=== PATIENT | male | born 1970 | race Caucasian/White ===

== ENCOUNTER 2018-09-21 23:48 | Inpatient (IN) | payer OTHER, MEDICAID ==
[~2018-09-21] VITALS: Ht 182.9 cm; Wt 89.8 kg
[2018-09-21 23:59] VITALS: BP 125/81
[2018-09-22] VITALS (7 sets, daily range): BP systolic 102–120; BP diastolic 62–71
[2018-09-22] MEDS ORDERED: OMEPRAZOLE40 MG PO (00:02)
[2018-09-22 00:27] LABS: HEMATOCRIT 39.3 % (42.0-52.0); HEMOGLOBIN 13.8 gm/dL (14.0-18.0); MCV 85.7 fL (80.0-100.0); MPV 6.5 fl. (7.2-11.1); RBC 4.59 mil/uL (4.50-6.00); RDW-CV 12.7 % (10.5-14.5); WBC 13.4 thou/uL (4.0-11.0)
[2018-09-22 00:37] LABS: CALCIUM 9.8 mg/dL (8.5-10.1); CREATININE 0.9 mg/dL (0.6-1.3); POTASSIUM 3.7 mmol/L (3.5-5.1)
--- NOTE | 2018-09-22 06:09 | NUR ---
ADMITTED 0200. GAVE HIM SOME FOOD AND HE WAS ABLE TO SLEEP REMAINDER OF SHIFT. HE DID NOT REPORT ANY NEW ONSET OF PAIN.
[2018-09-22 08:35] LABS: URINE BILIRUBIN NEGATIVE (Negative); URINE BLOOD NEGATIVE (Negative); URINE CLARITY CLEAR; URINE COLOR YELLOW; URINE GLUCOSE-RANDOM NEGATIVE (Negative); URINE KETONES NEGATIVE (Negative); URINE LEUKOCYTES-REFLEX NEGATIVE (Negative); URINE NITRITE-REFLEX NEGATIVE (Negative); URINE PROTEIN NEGATIVE (Negative); URINE UROBILINOGEN 0.2 E.U./dl (0.2-1.0)
--- NOTE | 2018-09-22 17:17 | NUR ---
PATIENT PLEASANT AND COOPERATIVE W/ ASSESS AND CARES THIS SHIFT. ALERT AND ORIENTED. IV FLUIDS INFUSING S/O DIFF. PATIENT INDEP IN RM. DENIES PAIN. SCRATCHES NOTED TO LOWER CALVES/ANKLE AREA BLE, PATIENT STATES JUST "ITCHY". SCDs TO BLE ON AND FUNCTIONING APPROP. REGULAR DIET, EATING WELL. NO BREATHING DIFF NOTED, CALM. RESTING IN BED, WATCHING TV. HRLY ROUNDING COMPLETED. ~TJRN
[2018-09-23 04:54] LABS: CALCIUM 8.2 mg/dL (8.5-10.1); CREATININE 0.6 mg/dL (0.6-1.3); MAGNESIUM 2.1 mg/dL (1.8-2.4); POTASSIUM 3.6 mmol/L (3.5-5.1)
--- NOTE | 2018-09-23 05:28 | NUR ---
PATIENT DID NOT REPORT ANY PAIN OR NEW ISSUES OVERNIGHT. HE WAS ABLE TO REST THROUGH THE SHIFT. NO WORSENING OF SYMPTOMS.
[2018-09-23 07:58] VITALS: BP 111/75
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
--- NOTE | 2018-09-23 16:48 | NUR ---
PT A&Ox4. VITALS STABLE. NEW IV PLACED IN R FA, INFUSING. DENIED PAIN. DENIED NAUSEA/VOMITING. TOLERATING DIET. WALKING HALLS. HOPEFULLY DC TOMORROW AFTER AM LABS. CALL LIGHT WITHIN REACH. WILL CONTINUE TO MONITOR.
[2018-09-23 16:53] VITALS: BP 122/75
[2018-09-23 21:15] VITALS: BP 115/69
[2018-09-24 05:12] LABS: CALCIUM 8.8 mg/dL (8.5-10.1); CREATININE 0.8 mg/dL (0.6-1.3); MAGNESIUM 2.2 mg/dL (1.8-2.4); POTASSIUM 4.2 mmol/L (3.5-5.1)
--- NOTE | 2018-09-24 05:51 | NUR ---
PATIENT AMBULATED HALLWAYS OFTEN THROUGHOUT SHIFT. HE IS TOLERATING DIET WELL AND REPORTING NO PAIN OR NAUSEA.
[2018-09-24 08:00] VITALS: BP 111/63
[2018-09-24 09:37] VITALS: BP 111/63
--- NOTE | 2018-09-24 13:38 | NUR ---
PT.TO BE DISCHARGED TODAY. HE WILL NEED TRANSPORTATION. HE REQUESTED [facility]. HE WOULD LIKE TO GET TO [place], [place]. CAB VOUCHER GIVEN TO RN. STORAGE FACILITY HOUSEKEEPER TO CALL CAB FOR [facility], WHEN PT.READY.
--- NOTE | 2018-09-24 14:00 | NUR ---
ASSUMED CARE OF PATIENT AT APPROX 0730. ALERT AND OREINTED X4. ASSESSMENT COMPLETED AND CHARTED. VSS ON ROOM AIR. NO COMPLAINTS OF PAIN, NAUSEA, OR SOA. PATIENT DISCHARGED AT 1330 WITH ALL PERSONAL BELONGINGS AND DISCHARGE PACKET. PATIENT LEFT VIA TAXI WITH VOUCHER.
== END 2018-09-24 13:30 | disposition home or self-care (01) | DRG 565 ==
LOC: M.ERS 23:48 → M.TBA-ER 09-22 01:45 → M.ORTHSURG 09-22 01:45
PROVIDERS: Emergency Medicine Emergency Medical Services; Internal Medicine; ADMIT Internal Medicine
DX: T79.6XXA Traumatic ischemia of muscle, initial encounter (principal); R65.10 Systemic inflammatory response syndrome (SIRS) of non-infectious origin without acute organ dysfunction; Z95.5 Presence of coronary angioplasty implant and graft; K21.9 Gastro-esophageal reflux disease without esophagitis; F17.210 Nicotine dependence, cigarettes, uncomplicated; I25.10 Atherosclerotic heart disease of native coronary artery without angina pectoris; Y93.01 Activity, walking, marching and hiking; Z79.899 Other long term (current) drug therapy